=== PATIENT | male | born 1990 | race Two or more races ===

== ENCOUNTER 2018-04-21 04:53 | Emergency (ER) | payer OTHER ==
[~2018-04-21] VITALS: Ht 165.1 cm; Wt 56.7 kg
[2018-04-21 05:05] VITALS: BP 113/56
[2018-04-21] MEDS ORDERED: HYDROcodone/APAP 5/325MG 1 TAB TABLET PO ONE (06:00)
--- NOTE | 2018-04-21 06:03 | PHYS DOC ---
Past Medical History Past Medical History: No Pertinent History Past Surgical History: No Surgical History Alcohol Use: Occasionally Drug Use: Marijuana Adult General Chief Complaint Chief Complaint: RIB PAIN HPI HPI This is a 27 yo M presenting with left-sided rib pain after falling onto his wheelbarrow 3 days ago. Pt is concerned because his pain has continued to worsen since its onset. Pain is aggravated by deep inspiration. Pt has no other complaints. Review of Systems Review of Systems Constitutional: Denies fever or chills [] Respiratory: Denies cough or shortness of breath [] Cardiovascular: Reports left sided chest wall pain GI: Denies abdominal pain, nausea, vomiting, bloody stools or diarrhea [] Musculoskeletal: Reports left-sided rib pain; Denies back pain or joint pain [] Integument: Denies bruising, laceration, rash or skin lesions [] Neurologic: Denies headache, focal weakness or sensory changes [] Complete systems were reviewed and found to be within normal limits, except as documented in this note. 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 [] HENT: Normocephalic, atraumatic, nose normal. [] Eyes: Conjunctiva normal, no discharge. [] Neck: Normal range of motion, no tenderness, supple, no stridor. [] Cardiovascular: Heart rate regular rhythm, no murmur [] Lungs & Thorax: Bilateral breath sounds clear to auscultation. Tenderness to palpation over anterior/lateral aspects of Ribs 9 & 10. No deformity, ecchymosis or crepitus Abdomen: Soft, no tenderness, no masses, no pulsatile masses. [] Skin: Warm, dry, no ecchymosis, no erythema, no rash. [] Back: No midline tenderness, ROM intact. [] Extremities: No tenderness, ROM intact, no edema. [] Neurologic: Alert and oriented X 3, , no focal deficits noted. [] Psychologic: Affect normal, judgement normal, mood normal. [] Current Patient Data Vital Signs Vital Signs Date Time Temp Pulse Resp B/P (MAP) Pulse Ox O2 Delivery O2 Flow Rate FiO2 04/21/18 06:06 12 100 Room Air 04/21/18 05:05 97.6 64 113/56 (75) 97.6 EKG EKG [] Radiology/Procedures Radiology/Procedures PROCEDURE: CT CHEST WO CONTRAST PQRS Compliance Statement: One or more of the following individualized dose reduction techniques were utilized for this examination: 1. Automated exposure control 2. Adjustment of the mA and/or kV according to patient size 3. Use of iterative reconstruction technique CT chest without contrast April 21, 2018 INDICATION: Left rib injury. Left-sided chest wall pain. COMPARISON: None available TECHNIQUE: Multiple axial CT images of the chest were obtained without intravenous contrast. Coronal and sagittal reformats are provided. FINDINGS: Thyroid gland is normal in appearance. There are no pathologically enlarged axillary, mediastinal or hilar lymph nodes. Heart size is within normal limits. There is no pericardial effusion. Thoracic esophagus is normal in appearance. There are no suspicious solid noncalcified pulmonary nodules. No pleural effusions. No pulmonary vascular congestion or pneumothorax. Lungs are clear. No suspicious osseous abnormality. No acutely displaced rib fracture. This abnormality is identified involving the visualized portions of the upper abdomen. IMPRESSION: No acutely displaced left-sided rib fracture. Electronically signed by: Minal Callejas MD (04/21/2018 6:29 AM) [facility] Course & Med Decision Making Course & Med Decision Making Pertinent Labs and Imaging studies reviewed. (See chart for details) This is a healthy 27 yo M presenting with left-sided rib pain after falling onto his wheelbarrow [address] Pain addressed. [address] chest pending. Sign out given to Dr. Lau for further evaluation and final disposition. Discussed current findings and plan with patient and family, who acknowledge understanding and agreement. [id number]- Prior to sign out to Dr. Lau, now CT imaging report back and without acute fracture or other abnormality. Incentive spirometer provided with education. Patient stable for discharge with outpatient follow-up with PCP. Discussed findings and plan with patient and family, who acknowledge understanding and agreement. Dragon Disclaimer Dragon Disclaimer This electronic medical record was generated, in whole or in part, using a voice recognition dictation system. Departure Departure Impression: Primary Impression: Chest wall pain Disposition: HOME, SELF-CARE Condition: STABLE Referrals: NO PCP (PCP) Patient Instructions: Chest Contusion, [id number], Incentive Spirometer Scripts Hydrocodone/Apap 5-325 (NORCO 5-325 TABLET) 1 Each Tablet 1 TAB PO PRN Q6HRS PRN for PAIN, #10 TAB 0 Refills Prov: ZAMZAM MARSHALL DO 04/21/18 ZAMZAM MARSHALL DO Apr 21, 2018 06:03
--- NOTE | 2018-04-21 06:32 | RAD ---
PQRS Compliance Statement: One or more of the following individualized dose reduction techniques were utilized for this examination: 1. Automated exposure control 2. Adjustment of the mA and/or kV according to patient size 3. Use of iterative reconstruction technique CT chest without contrast April 21, 2018 INDICATION: Left rib injury. Left-sided chest wall pain. COMPARISON: None available TECHNIQUE: Multiple axial CT images of the chest were obtained without intravenous contrast. Coronal and sagittal reformats are provided. FINDINGS: Thyroid gland is normal in appearance. There are no pathologically enlarged axillary, mediastinal or hilar lymph nodes. Heart size is within normal limits. There is no pericardial effusion. Thoracic esophagus is normal in appearance. There are no suspicious solid noncalcified pulmonary nodules. No pleural effusions. No pulmonary vascular congestion or pneumothorax. Lungs are clear. No suspicious osseous abnormality. No acutely displaced rib fracture. This abnormality is identified involving the visualized portions of the upper abdomen. IMPRESSION: No acutely displaced left-sided rib fracture. Electronically signed by: Minal Callejas MD (04/21/2018 6:29 AM) [id number]
[2018-04-21] MEDS ORDERED: HYDR-3164 PO (06:56)
== END 2018-04-21 07:11 | disposition home or self-care (01) ==
LOC: ER 04:53
DX: R07.89 Other chest pain (principal); W18.39XA Other fall on same level, initial encounter; Y93.89 Activity, other specified; Y92.89 Other specified places as the place of occurrence of the external cause; Y99.8 Other external cause status
CPT/HCPCS: 71250; 99284